=== PATIENT | female | born 1955 | race Caucasian/White ===

== ENCOUNTER 2018-09-07 15:37 | Emergency (ER) | payer BC ==
[~2018-09-07] VITALS: Ht 154.9 cm; Wt 97.5 kg
[~2018-09-07 15:37] MED LIST: Antivert25 MG PO; Aspirin EC81 MG PO; LOSA50 PO; Multivitamin1 EAC1 PO; OFLO.3OTSO RIGHTEAR; OMEPRAZOLE MAGN20 MG PO; SERT25 PO; Zofran Odt4 MG SL
[2018-09-07 17:07] LABS: BASOPHILS ABSOLUTE AUTO 0.02 K/mm3 (0.00-0.23); BASOPHILS PERCENT AUTO 0 % (0-2); EOSINOPHILS ABSOLUTE AUTO 0.06 K/mm3 (0.00-0.68); EOSINOPHILS PERCENT AUTO 1 % (0-6); Hemoglobin 13.7 g/dL (11.5-16.0); IMMATURE GRAN ABSOLUTE AUTO 0.01 K/mm3 (0.00-0.10); IMMATURE GRAN PERCENT AUTO 0 % (0-1); LYMPHOCYTES ABSOLUTE AUTO 2.19 K/mm3 (0.84-5.20); LYMPHOCYTES PERCENT AUTO 28 % (21-46); MONOCYTES ABSOLUTE AUTO 0.62 K/mm3 (0.16-1.47); MONOCYTES PERCENT AUTO 8 % (4-13); Mean Corpuscular HGB 29.8 pg (26.0-34.0); Mean Corpuscular HGB Conc 31.9 g/dL (31.5-36.5); Mean Corpuscular Volume 94 fL (80-100); Mean Platelet Volume 9.9 fL (9.1-12.4); NEUTROPHILS ABSOLUTE AUTO 4.95 K/mm3 (1.96-9.15); NEUTROPHILS PERCENT AUTO 63 % (41-73); Platelet Count 296 K/mm3 (150-400); RDW Coefficient Variation 12.9 % (11.7-14.2); RDW Standard Deviation 44.2 fL (35.1-46.3); White Blood Cell Count 7.85 K/mm3 (4.00-11.30)
[2018-09-07 17:27] LABS: Alanine Aminotransfer (ALT/SGP 20 U/L (12-78); Albumin, Blood 3.7 g/dL (3.4-5.0); Albumin/Globulin Ratio 0.9 (0.8-1.8); Alk Phos 97 U/L (50-136); Anion Gap 7 mmol/L (6-16); Aspartate Aminotrans (AST/SGOT 17 U/L (12-37); Bilirubin, Total 0.6 mg/dL (0.1-1.0); Blood Urea Nitrogen 18 mg/dL (8-24); Bun/Creatinine Ratio 30.2 (12.0-20.0); CO2, Blood 28 mmol/L (21-32); Chloride, Blood 105 mmol/L (98-108); Glomerular Filtration Rate >60 (60-); Glucose, Blood 89 mg/dL (70-99); Potassium, Blood 4.2 mmol/L (3.5-5.5); Sodium, Blood 140 mmol/L (136-145); Total Protein, Blood 7.7 g/dL (6.4-8.2)
[2018-09-07 17:30] LABS: Source, Urine Clean Catch
[2018-09-07 17:43] LABS: Appearance, Urine Clear (Clear); Bilirubin, Urine Neg (Neg); Blood, Urine 1+ (Neg); Color, Urine Yellow (P-Yellow); Glucose Qualitative, Urine Neg (Neg); Ketones, Urine Neg (Neg); Leukocyte Esterase, Urine 1+ (Neg); Nitrite, Urine Neg (Neg); Protein, Urine Neg (Neg); Urobilinogen, Urine NORM (Normal)
[2018-09-07 18:02] LABS: Bacteria Few /hpf; Squamous Epithelial Cells Few /hpf (Few)
[2018-09-07] MEDS ORDERED: Keflex500 MG PO (22:19)
== END 2018-09-07 22:40 | disposition home or self-care (01) ==
LOC: ER 15:37
PROVIDERS: Physician Assistant
DX: N39.0 Urinary tract infection, site not specified (principal); Z88.5 Allergy status to narcotic agent; Z88.8 Allergy status to other drugs, medicaments and biological substances; Z79.899 Other long term (current) drug therapy; Z87.891 Personal history of nicotine dependence
CPT/HCPCS: 36415; 74177; 80053; 81001; 83690; 85025; 87086; 96374-59; 99284-25; J1885; Q9967

== ENCOUNTER 2018-09-14 06:26 | Emergency (ER) | payer BC ==
[~2018-09-14] VITALS: Ht 154.9 cm; Wt 97.5 kg
[~2018-09-14 06:26] MED LIST changes: +Keflex500 MG PO
[2018-09-14] MEDS ORDERED: Zofran8 MG PO (08:24)
[2018-09-14] MEDS ORDERED: IBUP400 PO (08:24)
[2018-09-14] MEDS ORDERED: CYCL10 PO (08:24)
[2018-09-14] MEDS ORDERED: Dilaudid 2 mg Ta2 MG PO (08:24)
== END 2018-09-14 08:49 | disposition home or self-care (01) ==
LOC: ER 06:26
DX: M62.830 Muscle spasm of back (principal); Z88.5 Allergy status to narcotic agent; Z88.8 Allergy status to other drugs, medicaments and biological substances; Z79.899 Other long term (current) drug therapy; Z87.891 Personal history of nicotine dependence
CPT/HCPCS: 36415; 93005; 93010; 96374; 96375; 99284-25; J1170; J1885; J2060; J2405

== ENCOUNTER → 2018-10-14 | Outpatient (CLI) | payer BC, MEDICARE ==
[~2018-10-14] MED LIST changes: +CYCL10 PO; +Dilaudid 2 mg Ta2 MG PO; +IBUP400 PO; +Zofran8 MG PO
[2018-10-14 10:12] LABS: Source, Urine Clean Catch
[2018-10-14 13:12] LABS: Appearance, Urine Clear (Clear); Bilirubin, Urine Neg (Neg); Blood, Urine Neg (Neg); Color, Urine Yellow (P-Yellow); Glucose Qualitative, Urine Neg (Neg); Ketones, Urine Neg (Neg); Leukocyte Esterase, Urine Neg (Neg); Nitrite, Urine Neg (Neg); Protein, Urine Neg (Neg); Specific Gravity, Urine 1.005 (1.003-1.022); Urobilinogen, Urine NORM (Normal); pH, Urine 6.5 (5.0-8.0)
== END | disposition home or self-care (01) ==
LOC: LAB 10:10 → LAB SHORT 10:10
PROVIDERS: Internal Medicine
DX: N39.0 Urinary tract infection, site not specified (principal)
CPT/HCPCS: 81003; 87086

== ENCOUNTER → 2020-01-26 | Outpatient (CLI) | payer MEDICARE | END | disposition home or self-care (01) | LOC: LAB SHORT 10:56 → PLD 10:56 | DX: L57.0 Actinic keratosis (principal) | CPT/HCPCS: 88305 ==

== ENCOUNTER → 2021-04-23 | Outpatient (CLI) | payer MEDICARE | END | disposition home or self-care (01) | LOC: LAB SHORT 11:58 → LAB 11:58 | DX: D22.4 Melanocytic nevi of scalp and neck (principal) | CPT/HCPCS: 88305 ==

== ENCOUNTER → 2021-08-13 | Outpatient (CLI) | payer MEDICARE ==
[~2021-08-13] MED LIST changes: +AMOCLA875 PO; +CLIN150 PO; +SULTRIDS PO
== END | disposition home or self-care (01) ==
LOC: LAB SHORT 08:30
DX: L08.9 Local infection of the skin and subcutaneous tissue, unspecified (principal)
CPT/HCPCS: 87070

== ENCOUNTER 2021-09-14 08:37 | Emergency (ER) | payer MEDICARE ==
[~2021-09-14] VITALS: Ht 154.9 cm; Wt 103.1 kg
[2021-09-14] MEDS ORDERED: EPLE25 PO (09:01)
[2021-09-14] MEDS ORDERED: WARF10 PO (09:02)
[2021-09-14] MEDS ORDERED: ENOX100I SC (09:03)
[2021-09-14 09:47] LABS: International Normalized Ratio 1.22; Prothrombin Time Results 12.6 Sec (9.7-11.5)
== END 2021-09-14 10:17 | disposition home or self-care (01) ==
LOC: ER 08:37
PROVIDERS: Emergency Medicine
DX: S80.12XA Contusion of left lower leg, initial encounter (principal); I10 Essential (primary) hypertension; Z79.899 Other long term (current) drug therapy; Z87.891 Personal history of nicotine dependence; X58.XXXA Exposure to other specified factors, initial encounter
CPT/HCPCS: 85240; 85610; 85730; 93971; 99283-25

== ENCOUNTER → 2022-01-10 | Outpatient (CLI) | payer MEDICARE, OTHER ==
[~2022-01-10] MED LIST changes: +ENOX100I SC; +EPLE25 PO; +WARF10 PO
== END | disposition home or self-care (01) ==
LOC: LAB 15:15 → LAB SHORT 15:15
DX: L08.9 Local infection of the skin and subcutaneous tissue, unspecified (principal); R21 Rash and other nonspecific skin eruption
CPT/HCPCS: 87070; 87205

== ENCOUNTER → 2022-07-21 | Outpatient (CLI) | payer MEDICARE, OTHER ==
[2022-07-21 09:58] LABS: International Normalized Ratio 1.16; Prothrombin Time Results 12.1 Sec (9.7-11.5)
== END | disposition home or self-care (01) ==
LOC: LAB 09:37 → LAB SHORT 09:37
PROVIDERS: Internal Medicine
DX: Z79.01 Long term (current) use of anticoagulants (principal); Z51.81 Encounter for therapeutic drug level monitoring; I26.99 Other pulmonary embolism without acute cor pulmonale
CPT/HCPCS: 85610

== ENCOUNTER → 2022-07-27 | Outpatient (CLI) | payer MEDICARE, OTHER ==
[2022-07-27 09:54] LABS: International Normalized Ratio 2.31
== END | disposition home or self-care (01) ==
LOC: LAB SHORT 09:27
PROVIDERS: Internal Medicine
DX: I26.99 Other pulmonary embolism without acute cor pulmonale (principal)
CPT/HCPCS: 85610

== ENCOUNTER → 2022-07-28 | Outpatient (CLI) | payer MEDICARE, OTHER ==
[2022-07-28 09:21] LABS: International Normalized Ratio 2.26; Prothrombin Time Results 22.5 Sec (9.7-11.5)
== END | disposition home or self-care (01) ==
LOC: LAB SHORT 08:51
PROVIDERS: Internal Medicine
DX: Z79.01 Long term (current) use of anticoagulants (principal); Z51.81 Encounter for therapeutic drug level monitoring; I26.99 Other pulmonary embolism without acute cor pulmonale; Z86.711 Personal history of pulmonary embolism
CPT/HCPCS: 36415; 85610

== ENCOUNTER 2023-04-12 17:09 | Emergency (ER) | payer MEDICARE, OTHER ==
[~2023-04-12] VITALS: Ht 154.9 cm; Wt 97.5 kg
[2023-04-12] MEDS ORDERED: XARELTO20 MG (18:06)
[2023-04-12] MEDS ORDERED: PREGABALIN 200 MG (18:06)
[2023-04-12 19:54] LABS: BASOPHILS ABSOLUTE AUTO 0.03 K/mm3 (0.00-0.23); BASOPHILS PERCENT AUTO 1 % (0-2); EOSINOPHILS ABSOLUTE AUTO 0.11 K/mm3 (0.00-0.68); EOSINOPHILS PERCENT AUTO 2 % (0-6); Hematocrit 37.4 % (33.0-51.0); Hemoglobin 11.7 g/dL (11.5-16.0); IMMATURE GRAN ABSOLUTE AUTO 0.01 K/mm3 (0.00-0.10); IMMATURE GRAN PERCENT AUTO 0 % (0-1); LYMPHOCYTES ABSOLUTE AUTO 1.26 K/mm3 (0.84-5.20); LYMPHOCYTES PERCENT AUTO 21 % (21-46); MONOCYTES ABSOLUTE AUTO 0.51 K/mm3 (0.16-1.47); MONOCYTES PERCENT AUTO 8 % (4-13); Mean Corpuscular HGB 27.4 pg (26.0-34.0); Mean Corpuscular HGB Conc 31.3 g/dL (31.5-36.5); Mean Corpuscular Volume 88 fL (80-100); Mean Platelet Volume 9.8 fL (9.1-12.4); NEUTROPHILS ABSOLUTE AUTO 4.13 K/mm3 (1.96-9.15); NEUTROPHILS PERCENT AUTO 68 % (41-73); Platelet Count 293 K/mm3 (150-400); RDW Coefficient Variation 13.2 % (11.7-14.2); RDW Standard Deviation 41.9 fL (35.1-46.3); Red Blood Cell Count 4.27 M/mm3 (3.80-5.20); White Blood Cell Count 6.05 K/mm3 (4.00-11.30)
[2023-04-12 20:26] LABS: Albumin, Blood 3.4 g/dL (3.4-5.0); Albumin/Globulin Ratio 0.9 (0.8-1.8); Bilirubin, Total 0.2 mg/dL (0.1-1.0); Bun/Creatinine Ratio 19.1 (12.0-20.0); Calcium, Blood 8.8 mg/dL (8.5-10.1); Creatinine, Blood 0.79 mg/dL (0.40-1.00); Globulin, Blood 3.9 g/dL (2.2-4.0); Total Protein, Blood 7.3 g/dL (6.4-8.2)
[2023-04-12 21:39] VITALS: BP 165/90
== END 2023-04-12 22:47 | disposition home or self-care (01) ==
LOC: ER 17:09
PROVIDERS: Emergency Medicine
DX: R13.10 Dysphagia, unspecified (principal); Z88.8 Allergy status to other drugs, medicaments and biological substances; Z88.5 Allergy status to narcotic agent; Z79.899 Other long term (current) drug therapy; Z79.01 Long term (current) use of anticoagulants; I10 Essential (primary) hypertension; Z87.891 Personal history of nicotine dependence
CPT/HCPCS: 70491; 80053; 85025; 99283-25; J7030; Q9967

== ENCOUNTER 2023-08-17 14:56 | Emergency (ER) | payer MEDICARE, OTHER ==
[~2023-08-17] VITALS: Ht 154.9 cm; Wt 154.2 kg
[~2023-08-17 14:56] MED LIST changes: +PREGABALIN 200 MG; +XARELTO20 MG PO
[2023-08-17 15:35] LABS: BASOPHILS ABSOLUTE AUTO 0.02 K/mm3 (0.00-0.23); BASOPHILS PERCENT AUTO 0 % (0-2); EOSINOPHILS ABSOLUTE AUTO 0.06 K/mm3 (0.00-0.68); EOSINOPHILS PERCENT AUTO 1 % (0-6); Hematocrit 39.7 % (33.0-51.0); Hemoglobin 12.3 g/dL (11.5-16.0); IMMATURE GRAN ABSOLUTE AUTO 0.01 K/mm3 (0.00-0.10); IMMATURE GRAN PERCENT AUTO 0 % (0-1); LYMPHOCYTES ABSOLUTE AUTO 1.75 K/mm3 (0.84-5.20); LYMPHOCYTES PERCENT AUTO 28 % (21-46); MONOCYTES ABSOLUTE AUTO 0.53 K/mm3 (0.16-1.47); MONOCYTES PERCENT AUTO 8 % (4-13); Mean Corpuscular HGB 26.4 pg (26.0-34.0); Mean Corpuscular Volume 85 fL (80-100); Mean Platelet Volume 10.3 fL (9.1-12.4); NEUTROPHILS ABSOLUTE AUTO 3.95 K/mm3 (1.96-9.15); NEUTROPHILS PERCENT AUTO 63 % (41-73); Platelet Count 284 K/mm3 (150-400); RDW Coefficient Variation 15.2 % (11.7-14.2); RDW Standard Deviation 47.5 fL (35.1-46.3); Red Blood Cell Count 4.66 M/mm3 (3.80-5.20); White Blood Cell Count 6.32 K/mm3 (4.00-11.30)
[2023-08-17 16:03] LABS: Albumin, Blood 3.3 g/dL (3.4-5.0); Albumin/Globulin Ratio 0.8 (0.8-1.8); Bilirubin, Total 0.4 mg/dL (0.1-1.0); Bun/Creatinine Ratio 19.5 (12.0-20.0); Calcium, Blood 9.2 mg/dL (8.5-10.1); Creatinine, Blood 0.77 mg/dL (0.40-1.00); Globulin, Blood 3.9 g/dL (2.2-4.0); Potassium, Blood 3.7 mmol/L (3.5-5.5); Total Protein, Blood 7.2 g/dL (6.4-8.2)
[2023-08-17] MEDS ORDERED: OMEP20ER PO (19:25)
[2023-08-17] MEDS ORDERED: PREGABALIN PO (19:27)
[2023-08-17] MEDS ORDERED: VITAMIN D31250 MC2 PO (19:29)
[2023-08-17] MEDS ORDERED: VITAMIN B121000 MCG PO (19:29)
[2023-08-17] MEDS ORDERED: Acerola C500 MG PO (19:30)
[2023-08-17] MEDS ORDERED: ELEMENTAL ZINC30 MG PO (19:30)
[2023-08-17] MEDS ORDERED: IRON18 MG PO (19:31)
[2023-08-17] MEDS ORDERED: AZELASTINE137 MCG/01 INH (19:32)
[2023-08-17 20:30] VITALS: BP 153/109
[2023-08-17] MEDS ORDERED: ALPR.5 PO (20:30)
== END 2023-08-17 20:47 | disposition home or self-care (01) ==
LOC: ER 14:56
PROVIDERS: Student in an Organized Health Care Education/Training Program
DX: F41.9 Anxiety disorder, unspecified (principal); I49.1 Atrial premature depolarization; Z87.891 Personal history of nicotine dependence; I10 Essential (primary) hypertension; I82.402 Acute embolism and thrombosis of unspecified deep veins of left lower extremity; Z86.711 Personal history of pulmonary embolism; Z79.01 Long term (current) use of anticoagulants; Z79.899 Other long term (current) drug therapy; Z88.5 Allergy status to narcotic agent; Z88.6 Allergy status to analgesic agent
CPT/HCPCS: 71046; 80053; 83880; 84484; 85025; 93005; 93010; 99284-25